=== PATIENT | female | born 1965 | race Two or more races ===

== ENCOUNTER 2019-04-19 08:37 | Emergency (ER) | payer MEDICAID ==
[~2019-04-19] VITALS: Ht 154.9 cm; Wt 69.4 kg
[2019-04-19] MEDS ORDERED: ALBUTEROL2.5 MG/3 M INH (08:43)
[2019-04-19 08:48] VITALS: BP 109/71
[2019-04-19] MEDS ORDERED: AFRIN NASAL SPR30 ML NASAL (08:51)
[2019-04-19] MEDS ORDERED: IBUPROFEN600 MG ORAL (08:59)
[2019-04-19] MEDS ORDERED: traMADol 50mg tab ORAL ONE (09:00)
--- NOTE | 2019-04-19 09:00 | Emergency Room Report ---
History of Present Illness General Chief Complaint: Wound Recheck/Suture Removal Source: Patient Present Illness HPI Patient is a 53-year-old female past medical history of mental illness as well as right hand injury requiring surgery years ago who presents to the ER for suture removal. Patient states that she punched glass 3 weeks ago and had sutures placed at an outside facility. She said she had x-rays at that time. She says that she went back to [facility] where they removed most of the sutures except for 2. She states that she would like the sutures removed. Patient also states that she reinjured the ligaments that she thinks she tore before and is going to start physical therapy. I asked her if I could take another x-ray today and she declined stating that she already had it done at an outside facility. She is requesting a hand brace as well as some nasal spray for allergies. She denies any fever or chills. She denies any discharge from her wound site. Allergies: Coded Allergies: PENICILLINS (Verified Allergy, Unknown, 04/19/19) Patient History Last Menstrual Period: menopause Reviewed Nursing Documentation: PMH: Agreed; PSxH: Agreed Nursing Documentation-PMH Hx Asthma: Yes Review of Systems All Other Systems: negative except mentioned in HPI Physical Exam Vital Signs Date Time Temp Pulse Resp B/P (MAP) Pulse Ox O2 Delivery O2 Flow Rate FiO2 04/19/19 08:39 97.9 86 18 109/71 (84) 98 Room Air Sp02 EP Interpretation: reviewed, normal General Appearance: no apparent distress, alert, GCS 15, non-toxic Head: normocephalic, atraumatic Eyes: bilateral eye normal inspection, bilateral eye PERRL ENT: hearing grossly normal, normal pharynx, no angioedema, normal voice Neck: full range of motion, supple/symm/no masses Respiratory: chest non-tender, lungs clear, normal breath sounds, speaking full sentences Cardiovascular #1: regular rate, rhythm, no edema Cardiovascular #2: 2+ carotid (R), 2+ carotid (L), 2+ radial (R), 2+ radial (L) , 2+ dorsalis pedis (R), 2+ dorsalis pedis (L) Gastrointestinal: normal bowel sounds, non tender, soft, non-distended, no guarding, no rebound, other - Healed old abdominal surgical scar Rectal: deferred Genitourinary: normal inspection, no CVA tenderness Musculoskeletal: back normal, calf tenderness, gait/station normal, other - Left volar deformity with decreased range of motion she states that is been present from prior and just got worse [address] over third metacarpal well-healed laceration with no erythema or discharge mild tenderness to palpation Neurologic: alert, motor strength/tone normal, oriented x3, sensory intact, responsive, speech normal Psychiatric: judgement/insight normal, memory normal, mood/affect normal, no suicidal/homicidal ideation Reflexes: 3+ bicep (R), 3+ bicep (L), 3+ tricep (R), 3+ tricep (L), 3+ knee (R) , 3+ knee (L) Lymphatic: no adenopathy Procedures Splinting Splinting : Consent: Verbal Location: R wrist and hand Pre-Made Type: velcro Splint: volar Pre-Proc Neuro Vasc Exam: normal Post-Proc Neuro Vasc Exam: normal Patient Tolerated: Well Medical Decision Making Diagnostic Impression: Primary Impression: Visit for suture removal ER Course Sutures removed without difficulty. Patient declining radiologic testing I have given her a splint until she can go see her physician for physical therapy. I have also given her a resource for orthopedic clinic. After discussing risks and benefits of further diagnostics, treatment plans, as well as indications for and risks of admission, the patient is agreeable to being discharged home. I have explained that their evaluation and treatment in the emergency department today is an important step towards them achieving better health but that their evaluation today is not intended to replace further evaluation and treatment by a physician in their local clinic. I have explained that while the current findings suggest no immediate life threatening emergency they will require further evaluation and treatment by a physician of their choice in their area. They understand that it will be necessary for them to review the final reports of their ED visit with their clinic physician. We have reviewed indications for return to the Emergency Department. I have explained that additional time may need to pass and/or additional testing as an outpatient may be necessary before a definitive diagnosis can be made. They tell me they are willing to follow up as instructed within the timeframe I recommend. They appear to understand what we discussed. Additionally they understand that if they are unable to be seen by an outpatient physician they are welcome, and in fact should, return to the Emergency Department for a repeat evaluation. The patient is stable at time of discharge. Last Vital Signs Date Time Temp Pulse Resp B/P (MAP) Pulse Ox O2 Delivery O2 Flow Rate FiO2 04/19/19 08:48 97.9 83 18 109/71 98 Room Air Disposition: HOME, SELF-CARE Condition: Stable Scripts Ibuprofen* (MOTRIN*) 600 Mg Tablet 600 MG ORAL Q8H PRN for For Pain, #30 TAB 0 Refills Prov: Erna Gonzalez M.D. 04/19/19 Oxymetazoline HCl (Afrin) 15 Ml [place] 2 SPRAY NASAL TWICE A DAY, #1 SPRAY Prov: Erna Gonzalez M.D. 04/19/19 [facility] Open 24 hour /7 days a week by Appointment Only [address] [facility] [address] Patient Instructions: Sutured Wound Care, [id number] Erna Gonzalez M.D. Apr 19, 2019 09:00
[2019-04-19 09:01] VITALS: BP 109/71
== END 2019-04-19 09:00 | disposition home or self-care (01) ==
LOC: EMR 08:53
DX: S61.411D Laceration without foreign body of right hand, subsequent encounter (principal); X58.XXXD Exposure to other specified factors, subsequent encounter; Z48.02 Encounter for removal of sutures; Z88.0 Allergy status to penicillin; J45.909 Unspecified asthma, uncomplicated
CPT/HCPCS: 29125; Z7502; 99282

== ENCOUNTER 2019-04-22 12:01 | Emergency (ER) | payer MEDICAID ==
[~2019-04-22] VITALS: Ht 154.9 cm; Wt 69.9 kg
[~2019-04-22 12:01] MED LIST: AFRIN NASAL SPR30 ML NASAL; ALBUTEROL2.5 MG/3 M INH; IBUPROFEN600 MG ORAL
[2019-04-22 12:18] VITALS: BP 116/74
--- NOTE | 2019-04-22 12:19 | NUR ---
ED Nurse Note: A/OX4. PT REPORTS HAVING GENITAL HERPE BREAKOUT LIKE SORES BUT DENIES BLEEDING/DISCHARGE/ITCHINESS AND HEMORRHOID BREAK OUT. BREATHING NORMAL/EVEN/UNLABORED. SKIN WARM/DRY/INTACT. PT STATES THAT SHE'S WAITING TO BE APPROVED FOR HEMORRHOID SURGERY.
--- NOTE | 2019-04-22 12:20 | Emergency Room Report ---
History of Present Illness General Chief Complaint: Female Urogenital Problems Source: Patient Present Illness HPI 53 YO female presents w/ 2 complaints. 5/10 in severity painful burning sore on the inner labia x 2 days in addition to exacerbation of her hemorrhoids. Pt. reports she is awaiting surgical removal of her hemorrhoids. She denies dysuria , frequency, urgency, bleeding or vaginal d/c. she denies lesions elsewhere on her body. She reports hx of herpes in the past and they have presented in a similar fashion. Pt. reports palpable hemorrhoids. Pt. denies rectal bleeding. She reports rectal itching.She reports mild constipation and denies diarrhea. She denies fevers, chills, abdominal pain or Tenderness. She denies swollen tender lymph nodes. Allergies: Coded Allergies: PENICILLINS (Verified Allergy, Unknown, 04/19/19) Patient History Past Medical History: see triage record Past Surgical History: none Pertinent Family History: none Last Menstrual Period: na Now: No Reviewed Nursing Documentation: PMH: Agreed; PSxH: Agreed Nursing Documentation-PMH Past Medical History: No History, Except For Hx Asthma: Yes Review of Systems All Other Systems: negative except mentioned in HPI Physical Exam Vital Signs Date Time Temp Pulse Resp B/P (MAP) Pulse Ox O2 Delivery O2 Flow Rate FiO2 04/22/19 12:09 98.2 65 16 116/74 (88) 97 Room Air Sp02 EP Interpretation: reviewed, normal General Appearance: no apparent distress, alert, GCS 15, non-toxic Head: normocephalic, atraumatic Eyes: bilateral eye normal inspection, bilateral eye PERRL ENT: hearing grossly normal, normal voice Neck: full range of motion Respiratory: lungs clear, normal breath sounds, no wheezing, speaking full sentences Cardiovascular #1: regular rate, rhythm Gastrointestinal: non tender, soft Rectal: hemorrhoids - two non-thrombosed hemorrhoids in the 12 and 9 o'clock positions. Genitourinary: normal inspection, no CVA tenderness, other - sensitive/tender ulcerated lesion to the inner aspect of the left labia. no other lesions, no crusting, no LAD. Musculoskeletal: back normal, normal range of motion, gait/station normal, non- tender Neurologic: alert, motor strength/tone normal, oriented x3, sensory intact, responsive, speech normal Psychiatric: judgement/insight normal Lymphatic: no adenopathy Medical Decision Making PA Attestation Dr. Sifuentes is my supervising Physician whom patient management has been discussed with. Diagnostic Impression: Primary Impression: Hemorrhoids Qualified Codes: K64.9 - Unspecified hemorrhoids Additional Impression: Herpes genitalis in women ER Course 53 YO female presents w/ 2 complaints. /10 in severity painful burning sore on the inner labia x 2 days in addition to exacerbation of her hemorrhoids. Pt. reports she is awaiting surgical removal of her hemorrhoids. She denies dysuria , frequency, urgency, bleeding or vaginal d/c. she denies lesions elsewhere on her body. She reports hx of herpes in the past and they have presented in a similar fashion. Pt. reports palpable hemorrhoids. Pt. denies rectal bleeding. She reports rectal itching.She reports mild constipation and denies diarrhea. She denies fevers, chills, abdominal pain or Tenderness. She denies swollen tender lymph nodes. Ddx considered but are not limited to constipation , anal fissure, perianal abscess, rectal wall tear, thrombosed hemorrhoid, hemorrhoid, syphilis, herpes, lgv, cellulitis, ulcer just to name a few. . Vital signs: are WNL, pt. is afebrile H&PE are most consistent with two non-thrombosed hemorrhoids , secondary to straining/ constipation. bowl sounds are normo active. and genital herpes outbreak. ORDERS: Under quite at this time ED INTERVENTIONS: - Discussed the patient's self care interventions for hemorrhoids DISCHARGE: At this time pt. is stable for d/c to home. Will provide printed patient care instructions, and any necessary prescriptions. Care plan and follow up instructions have been discussed with the patient prior to discharge. Last Vital Signs Date Time Temp Pulse Resp B/P (MAP) Pulse Ox O2 Delivery O2 Flow Rate FiO2 04/22/19 12:09 98.2 65 16 116/74 (88) 97 Room Air Disposition: HOME, SELF-CARE Condition: Stable Scripts Docusate Sodium* (COLACE*) 100 Mg Capsule 100 MG ORAL TWICE A DAY for straining/hemorrhoids, #30 CAP Prov: Mayuri Davalos 04/22/19 Acyclovir* (ACYCLOVIR*) 400 Mg Tablet 400 MG ORAL FIVE TIMES A DAY for 7 Days, #35 TAB Prov: Mayuri Davalos 04/22/19 Hydrocortisone Hc 2.5% Cream (ANUSOL-HC 2.5% CREAM) Y Cr 1 APPLIC RC THREE TIMES A DAY, #38 GM 1 Refill Prov: Mayuri Davalos 04/22/19 Patient Instructions: Genital Herpes, Hemorrhoids Additional Instructions: Take medications as directed. Follow up with a Primary Care Provider or WIND DEVELOPMENT DIRECTOR in 3-5 days, even if your symptoms have resolved. Return sooner to ED if new symptoms occur, or current symptoms become worse. - Please note that this Emergency Department Report was dictated using [employer] software engineer technology software, occasionally this can lead to erroneous entry secondary to interpretation by the dictation equipment. Mayuri Davalos Apr 22, 2019 12:20
[2019-04-22] MEDS ORDERED: ANUSOL-HC30 GM RC (12:37)
[2019-04-22] MEDS ORDERED: COLACE100 MG ORAL (12:37)
[2019-04-22] MEDS ORDERED: ACYCLOVIR400 MG ORAL (12:37)
[2019-04-22 12:40] VITALS: BP 116/74
--- NOTE | 2019-04-22 12:41 | NUR ---
ED Nurse Note: Pt cleared by health care Provider for discharge. DC instructions/prescription was given and explained to pt and verbalized understanding of teachings. All medical deviecs such as ID band removed. Pt is AAO x4, ambulatory and left with all personal belongings.
== END 2019-04-22 12:41 | disposition home or self-care (01) ==
LOC: EMR 12:35
DX: K64.9 Unspecified hemorrhoids (principal); A60.00 Herpesviral infection of urogenital system, unspecified; Z88.0 Allergy status to penicillin; J45.909 Unspecified asthma, uncomplicated
CPT/HCPCS: 99282

== ENCOUNTER 2019-04-26 11:43 | Emergency (ER) | payer MEDICAID ==
[~2019-04-26] VITALS: Ht 154.9 cm; Wt 70.3 kg
[~2019-04-26 11:43] MED LIST changes: +ACYCLOVIR400 MG ORAL; +ANUSOL-HC30 GM RC; +COLACE100 MG ORAL
--- NOTE | 2019-04-26 11:48 | NUR ---
ED Nurse Note: pt not in waiting room when called into triage
[2019-04-26 12:00] VITALS: BP 112/74
--- NOTE | 2019-04-26 12:00 | NUR ---
ED Nurse Note: Pt walked in from home c/o n/v with blood in her vomit. Pt reports green and yellow "acid" when vomiting. She also reports diarrhea x2 days. Respirations even and unlabored on room air. Vitals stable as documented. Pt placed on monitor.
[2019-04-26] MEDS ORDERED: Omnipaque-300 100ml vial INJ PRN (12:15)
[2019-04-26] MEDS ORDERED: Morphine Sulfate 4mg/ml Inj (IV USE ONLY) IVP ONE ×2 (12:30→14:30)
--- NOTE | 2019-04-26 12:33 | Emergency Room Report ---
History of Present Illness General Chief Complaint: Nausea, Vomiting, and Diarrhea Source: Patient Present Illness HPI 53-year-old female history of hernia surgery presents with nausea vomiting, diarrhea x2 days no aggravating leaving factors she also endorses abdominal cramps severity is mild, intermittent, patient presents for evaluation Allergies: Coded Allergies: PENICILLINS (Verified Allergy, Unknown, 04/19/19) Patient History Past Medical History: see triage record Reviewed Nursing Documentation: PMH: Agreed; PSxH: Agreed Nursing Documentation-PMH Past Medical History: No History, Except For Hx Hypertension: Yes Hx Asthma: Yes Hx Diabetes: Yes Review of Systems All Other Systems: negative except mentioned in HPI Physical Exam Vital Signs Date Time Temp Pulse Resp B/P (MAP) Pulse Ox O2 Delivery O2 Flow Rate FiO2 04/26/19 11:56 98.1 61 15 108/72 (84) 96 Room Air Sp02 EP Interpretation: reviewed, normal General Appearance: well appearing, no apparent distress, alert Head: normocephalic, atraumatic Eyes: bilateral eye PERRL, bilateral eye EOMI ENT: uvula midline, moist mucus membranes Neck: supple, thyroid normal, supple/symm/no masses Respiratory: lungs clear, no respiratory distress, no retraction, no accessory muscle use Cardiovascular #1: normal peripheral pulses, regular rate, rhythm, no edema, no gallop, no murmur Gastrointestinal: soft, no guarding, no rebound, tenderness - Epigastrically Musculoskeletal: normal inspection Neurologic: alert, oriented x3 Psychiatric: mood/affect normal Skin: no rash, warm/dry Medical Decision Making Diagnostic Impression: Primary Impression: Nausea, vomiting, and diarrhea Additional Impression: Gastritis Qualified Codes: K29.00 - Acute gastritis without bleeding ER Course 53-year-old female presents with epigastric abdominal pain differential diagnosis includes cholelithiasis cholecystitis, pancreatitis, gastritis Patient reports vomiting blood however has not vomited blood in the emergency room patient is also requesting multiple doses of pain medication which is incongruent with her exam Patient given pain medications pain was well controlled CT negative, counseled patient to follow-up with gastroenterology apparently she had a endoscopy 2 months ago which was negative Cures report ran shows over the past years that she has had multiple pain prescriptions there may be a pain seeking component however patient has minimal visits to this emergency room Disposition home with return precautions follow-up with PCP will provide Zofran as well as famotidine Laboratory Tests Test 04/26/19 12:22 White Blood Count 9.5 K/UL (4.8-10.8) Red Blood Count 4.64 M/UL (4.20-5.40) Hemoglobin 14.5 G/DL (12.0-16.0) Hematocrit 42.4 % (37.0-47.0) Mean Corpuscular Volume 91 FL (80-99) Mean Corpuscular Hemoglobin 31.2 PG (27.0-31.0) H Mean Corpuscular Hemoglobin Concent 34.2 G/DL (32.0-36.0) Red Cell Distribution Width 12.4 % (11.6-14.8) Platelet Count 351 K/UL (150-450) Mean Platelet Volume 5.4 FL (6.5-10.1) L Neutrophils (%) (Auto) 50.8 % (45.0-75.0) Lymphocytes (%) (Auto) 39.7 % (20.0-45.0) Monocytes (%) (Auto) 5.4 % (1.0-10.0) Eosinophils (%) (Auto) 3.0 % (0.0-3.0) Basophils (%) (Auto) 1.2 % (0.0-2.0) Prothrombin Time 9.9 SEC (9.30-11.50) Prothrombin Time INR 0.9 (0.9-1.1) Activated Partial Thromboplast Time 25 SEC (23-33) Sodium Level 142 MMOL/L (136-145) Potassium Level 3.9 MMOL/L (3.5-5.1) Chloride Level 107 MMOL/L (98-107) Carbon Dioxide Level 23 MMOL/L (21-32) Anion Gap 12 mmol/L (5-15) Blood Urea Nitrogen 20 mg/dL (7-18) H Creatinine 0.8 MG/DL (0.55-1.30) Estimate Glomerular Filtration Rate > 60 mL/min (>60) Glucose Level 98 MG/DL (74-106) Calcium Level 9.9 MG/DL (8.5-10.1) Total Bilirubin 0.3 MG/DL (0.2-1.0) Aspartate Amino Transferase (AST) 16 U/L (15-37) Alanine Aminotransferase (ALT) 24 U/L (12-78) Alkaline Phosphatase 69 U/L (46-116) Troponin I 0.000 ng/mL (0.000-0.056) Total Protein 8.2 G/DL (6.4-8.2) Albumin 4.3 G/DL (3.4-5.0) Globulin 3.9 g/dL Albumin/Globulin Ratio 1.1 (1.0-2.7) Lipase 382 U/L (73-393) EKG Diagnostic Results EKG Time: 11:24 EP Interpretation: Sinus bradycardia, rate 59, QTc 401, no acute ST elevations , normal axis Rhythm Strip Diag. Results Rhythm Strip Time: 12:32 EP Interpretation: yes Rate: 58 Rhythm: no PVC's, no ectopy, other - Sinus bradycardia CT/MRI/US Diagnostic Results CT/MRI/US Diagnostic Results : Impression Procedure: CT Abdomen Pelvis w/Contrast Clinical Indication: Abdominal pain, nausea, vomiting, diarrhea Technique: No oral contrast utilized, per emergency room physician request IV administration nonionic contrast. Venous phase spiral acquisition obtained through the abdomen and pelvis. Multiplanar reconstructions were generated. Total dose length product 339 mGycm. CTDIvol(s) 6 mGy. Dose reduction achieved using automated exposure control Comparison: none Findings: Lack of enteric contrast limits assessment of the GI tract. Small bowel loops, predominantly proximal mid jejunal loops in the left upper quadrant, demonstrate equivocal mild wall thickening. There is mural enhancement and some haziness of the adjacent mesenteric fat. The distal small bowel appears unremarkable. The appendix is normal. There is no evidence of colonic diverticulosis or diverticulitis. No free or loculated intraperitoneal gas or fluid is evident. The distal esophagus, stomach, duodenum are unremarkable. The gallbladder contains gallstones. No wall thickening or pericholecystic inflammation demonstrated. The liver, bile ducts, pancreas, spleen, adrenals, kidneys are unremarkable. No renal or ureter calculi, hydronephrosis, or hydroureter. The bladder contains nondependent gas. No bladder wall thickening demonstrated. The uterus demonstrates a 1.5 cm area of enhancement in the myometrium. The adnexal structures appear unremarkable. No pelvic mass or adenopathy otherwise. No retroperitoneal or mesenteric mass or adenopathy. The included lung bases demonstrate posterior dependent atelectatic changes. The bones demonstrate mild degenerative spondylosis changes. Impression: Limited assessment of the GI tract, due to lack of enteric contrast demonstration Mild proximal small bowel wall thickening, mural enhancement, and slight infiltration of the adjacent mesenteric fat suggests enteritis changes Gas within the bladder lumen. Most likely due to recent instrumentation; if no history of such then the possibility of infection with a gas-forming organism should be considered Cholelithiasis Probable 1.5 cm uterine fibroid Other findings as noted, including degenerative spondylosis, posterior dependent pulmonary atelectatic changes The CT scanner at [facility] is accredited by the [employer] and the scans are performed using protocols designed to limit radiation exposure to as low as reasonably achievable to attain images of sufficient resolution adequate for diagnostic evaluation. Dictated By: Miky Lua MD Electronically Signed By: Miky Lua MD Signed Date/Time 04/26/19 1402 CC: Ash Holt MD Last Vital Signs Date Time Temp Pulse Resp B/P (MAP) Pulse Ox O2 Delivery O2 Flow Rate FiO2 04/26/19 11:56 98.1 61 15 108/72 (84) 96 Room Air Disposition: HOME, SELF-CARE Condition: Stable Scripts Ondansetron (Zofran) 4 Mg Tablet 4 MG ORAL Q8H PRN for Nausea & Vomiting, #10 TAB 0 Refills Prov: Ash Holt MD 04/26/19 Famotidine* (Pepcid 20mg tablet*) 20 Mg Tablet 20 MG ORAL TWICE A DAY, #60 TAB 0 Refills Prov: Ash Holt MD 04/26/19 Referrals: [facility] Patient Instructions: Abdominal Pain, Adult, [id number], Gastritis, Adult, [id number] Additional Instructions: The patient was provided with discharge instructions, notified to follow-up with a primary care doctor and or specialist in the next 24-48 hours, and to return to the ED if they have worsening of their symptoms. Please note that this report is being documented using [employer] technology. This can lead to erroneous entry secondary to incorrect interpretation by the dictating instrument. PLEASE FOLLOW-UP WITH GASTROENTEROLOGY Ash Holt MD Apr 26, 2019 12:33
--- NOTE | 2019-04-26 12:55 | NUR ---
ED Nurse Note: Pt accidentally wasted urine sample. Pt said she will try again after IV fluids.
[2019-04-26 13:01] LABS: BASOPHILS % (AUTO) 1.2 % (0.0-2.0); HEMATOCRIT 42.4 % (37.0-47.0); HEMOGLOBIN 14.5 G/DL (12.0-16.0); LYMPHOCYTES % (AUTO) 39.7 % (20.0-45.0); MEAN CORPUSCULAR VOLUME 91 FL (80-99); MONOCYTES % (AUTO) 5.4 % (1.0-10.0); NEUTROPHILS % (AUTO) 50.8 % (45.0-75.0); PLATELET COUNT 351 K/UL (150-450); RED BLOOD COUNT 4.64 M/UL (4.20-5.40); RED CELL DISTRIBUTION WIDTH 12.4 % (11.6-14.8); WHITE BLOOD COUNT 9.5 K/UL (4.8-10.8)
[2019-04-26 13:08] LABS: INR 0.9 (0.9-1.1)
[2019-04-26 13:09] LABS: ANION GAP 12 mmol/L (5-15); BLOOD UREA NITROGEN 20 mg/dL (7-18); CALCIUM 9.9 MG/DL (8.5-10.1); CARBON DIOXIDE 23 MMOL/L (21-32); CHLORIDE 107 MMOL/L (98-107); CREATININE 0.8 MG/DL (0.55-1.30); POTASSIUM 3.9 MMOL/L (3.5-5.1); SODIUM 142 MMOL/L (136-145)
[2019-04-26 13:17] LABS: ALANINE AMINOTRANSFERASE 24 U/L (12-78); ALBUMIN 4.3 G/DL (3.4-5.0); ALBUMIN/GLOBULIN RATIO 1.1 (1.0-2.7); ALKALINE PHOSPHATASE 69 U/L (46-116); ASPARTATE AMINO TRANSFERASE 16 U/L (15-37); BILIRUBIN,TOTAL 0.3 MG/DL (0.2-1.0)
--- NOTE | 2019-04-26 13:30 | NUR ---
ED Nurse Note: urine sent to lab
--- NOTE | 2019-04-26 13:34 | NUR ---
ED Nurse Note: Pt in radiology
--- NOTE | 2019-04-26 14:14 | Diagnostic Imaging Report ---
Clinical Indication: Nausea, vomiting, diarrhea x2 days, mild intermittent abdominal cramps Technique: No oral contrast utilized, per emergency room physician request IV administration nonionic contrast. Venous phase spiral acquisition obtained through the abdomen and pelvis. Multiplanar reconstructions were generated. Total dose length product 295 mGycm. CTDIvol(s) 6 mGy. Dose reduction achieved using automated exposure control Comparison: none Findings: Lack of enteric contrast limits assessment of the GI tract. The appendix is not definitely visualized, but no findings to suggest acute appendicitis are evident. There may be some thelma in the cecum so it may have been removed. There are colonic diverticula. No evidence of acute diverticulitis. No small bowel distention. No free or loculated intraperitoneal gas or fluid is evident. There are anterior abdominal wall mesh anchors. There is slight infiltration of the periumbilical fat, likely related to the prior surgery. The distal esophagus, stomach, duodenum are unremarkable. The liver, gallbladder, bile ducts, pancreas, spleen, adrenals, kidneys are unremarkable. No pelvic mass or adenopathy. Normal uterus and adnexal structures. No retroperitoneal or mesenteric mass or adenopathy. The included lung bases demonstrate posterior dependent atelectatic changes bilaterally. The bones demonstrate degenerative spondylosis changes at L5-S1. Impression: This is the GI tract, due to lack of enteric contrast administration No definite acute abnormality Evidence of prior abdominal wall hernia surgery Incidental finding of mild degenerative spondylosis changes, posterior dependent pulmonary atelectatic changes The CT scanner at [facility] is accredited by the [employer] and the scans are performed using protocols designed to limit radiation exposure to as low as reasonably achievable to attain images of sufficient resolution adequate for diagnostic evaluation.
[2019-04-26] MEDS ORDERED: FAMOTIDINE20 MG ORAL (14:35)
[2019-04-26] MEDS ORDERED: ZOFRAN4 MG ORAL (14:35)
[2019-04-26 14:55] VITALS: BP 122/78
--- NOTE | 2019-04-26 14:55 | NUR ---
ER DISCHARGE NOTE: Patient is cleared to be discharged per ERMD, pt is aox4, on room air, with stable vital signs as documented. pt was given dc and prescription instructions, pt was able to verbalize understanding, pt id band and iv site removed without complications. pt is able to ambulate with steady gait. pt took all belongings.
--- NOTE | 2019-04-26 16:13 | Diagnostic Imaging Report ---
Indication: Shortness of breath Technique: One view of the chest Comparison: none Findings: Lungs and pleural spaces are clear. Heart size is normal. Impression: No acute process
== END 2019-04-26 14:55 | disposition home or self-care (01) ==
LOC: EMR 12:32
DX: K29.00 Acute gastritis without bleeding (principal); Z88.0 Allergy status to penicillin; I10 Essential (primary) hypertension; E11.9 Type 2 diabetes mellitus without complications; D25.9 Leiomyoma of uterus, unspecified; M47.9 Spondylosis, unspecified
CPT/HCPCS: 36415; 71045; 74177; 80053; 83690; 84484; 85025; 85610; 85730; 93005; 96361; 96374; 96375; 96376; J2270; J2405; J7030; Q9967; S0028; Z7502; 99284

== ENCOUNTER 2019-04-28 10:01 | Emergency (ER) | payer MEDICAID ==
[~2019-04-28] VITALS: Ht 154.9 cm; Wt 69.9 kg
[~2019-04-28 10:01] MED LIST changes: +FAMOTIDINE20 MG ORAL; +ZOFRAN4 MG ORAL
--- NOTE | 2019-04-28 10:15 | NUR ---
ED Nurse Note: pt walked into ER by self complaining of epigastric pain, nausea, and vomiting x3 days. pt aaox4, calm and cooperative. no respiratory or cardiac distress noted. pt has steady gait and able to ambulate to bathroom. pt dressed in gown.
[2019-04-28 10:16] VITALS: BP 117/82
[2019-04-28] MEDS ORDERED: MAALOX MAXIMUM355 M1 PO (10:49)
[2019-04-28] MEDS ORDERED: FAMOTIDINE20 MG ORAL (10:49)
--- NOTE | 2019-04-28 10:50 | NUR ---
ELOPEMENT: after pt spoke to ERMD, pt eloped. pt requested Morphine for abdominal pain however per ERMMaximino, pt did not meet criteria. pt changed into own clothes and left with all belongings. pt was informed about discharge instructions and papers however refused to stay to sign. Filippo Lemon RN tried to stop pt to educate and give discharge instructions however pt stated, "I'm done and I'm leaving." ERMD made aware.
--- NOTE | 2019-04-28 10:50 | NUR ---
ELOPEMENT: pt refused for vital signs to be taken when pt eloped.
--- NOTE | 2019-04-29 08:26 | Emergency Room Report ---
History of Present Illness General Chief Complaint: Abdominal Pain Source: Patient Present Illness HPI Patient presents with complaints of epigastric pain complains of burning sensation reports that she has a history of gastritis Patient also reports that she needs morphine and usually receives morphine for her pain Patient also reports that she was not able to get medications that were prescribed to her recently Denies any vomiting denies any diarrhea denies any flank pain denies any fevers or chills Allergies: Coded Allergies: PENICILLINS (Verified Allergy, Unknown, 04/19/19) Patient History Past Medical History: see triage record Now: No Reviewed Nursing Documentation: PMH: Agreed; PSxH: Agreed Nursing Documentation-PMH Hx Hypertension: Yes Hx Asthma: Yes Hx Diabetes: Yes Review of Systems All Other Systems: negative except mentioned in HPI Physical Exam Vital Signs Date Time Temp Pulse Resp B/P (MAP) Pulse Ox O2 Delivery O2 Flow Rate FiO2 04/28/19 10:11 98.2 72 17 109/74 (86) 98 Room Air Sp02 EP Interpretation: reviewed, normal General Appearance: well appearing, no apparent distress Head: normocephalic, atraumatic Eyes: bilateral eye PERRL, bilateral eye EOMI ENT: hearing grossly normal, normal pharynx, TMs + canals normal, uvula midline Neck: full range of motion, supple, no meningismus, no bony tend Respiratory: lungs clear, normal breath sounds, no rhonchi, no respiratory distress, no retraction, no accessory muscle use Cardiovascular #1: normal peripheral pulses, regular rate, rhythm, no edema, no gallop, no JVD, no murmur Gastrointestinal: normal bowel sounds, non tender, soft, no mass, no organomegaly, non-distended, no guarding, no hernia, no pulsatile mass, no rebound Musculoskeletal: normal inspection Neurologic: motor strength/tone normal, diabetic educator III-XII nml as tested, oriented x3 , sensory intact, responsive Psychiatric: mood/affect normal Skin: no rash Lymphatic: normal inspection, no adenopathy Medical Decision Making Diagnostic Impression: Primary Impression: abdominal pain ER Course With the history exam and presentation, multiple differentials considered, including but not limited to appendicitis, gastritis, cholecystitis, diverticulitis On evaluation I did want to provide further medication and further evaluation Patient however requesting morphine initially I did not feel that this was appropriate medications on initial evaluation And patient essentially stood up and left the emergency room Patient's actions and behavior is very concerning And she is encouraged to have appropriate outpatient follow-up return with any changes or concerns Last Vital Signs Date Time Temp Pulse Resp B/P (MAP) Pulse Ox O2 Delivery O2 Flow Rate FiO2 04/28/19 10:16 75 18 Room Air 04/28/19 10:16 98.0 117/82 98 Status: unchanged Disposition: HOME, SELF-CARE Condition: Stable Scripts Famotidine* (Pepcid 20mg tablet*) 20 Mg Tablet 20 MG ORAL DAILY, #15 TAB 0 Refills Prov: El Fontaine DO 04/28/19 Mag Hydrox/Al Hydrox/Simeth (MAALOX MAXIMUM STRENGTH SUSP) 355 Ml Oral.susp 10 ML PO BID for 5 Days, ML Prov: El Fontaine DO 04/28/19 Referrals: [facility],REFERRING (PCP) [facility] Patient Instructions: Abdominal Pain, Adult Additional Instructions: Patient is provided with the discharge instructions notified to follow up with primary doctor in the next 2-3 days otherwise return to the er with any worsening symptoms. Please note that this report is being documented using Dr. TATTOFF technology. This can lead to erroneous entry secondary to incorrect interpretation by the dictating instrument. El Fontaine DO Apr 29, 2019 08:26
== END 2019-04-28 10:57 | disposition home or self-care (01) ==
LOC: EMR 10:30
DX: R10.13 Epigastric pain (principal); E11.9 Type 2 diabetes mellitus without complications; J45.909 Unspecified asthma, uncomplicated; Z88.0 Allergy status to penicillin
CPT/HCPCS: 99282